=== PATIENT | male | born 2005 | race Hispanic/Latino ===

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

== ENCOUNTER 2023-05-07 19:02 | Emergency (ER) | payer OTHER ==
[~2023-05-07] VITALS: Ht 167.6 cm; Wt 57.6 kg
[2023-05-07 19:06] VITALS: BP 116/69; PULSE 68; RESP 16
== END 2023-05-07 21:41 | disposition left against medical advice (07) ==
LOC: EDH 19:02
DX: M54.50 Low back pain, unspecified (principal); Z53.21 Procedure and treatment not carried out due to patient leaving prior to being seen by health care provider
CPT/HCPCS: 99281